=== PATIENT | female | born 1985 | race Caucasian/White ===

== ENCOUNTER 2017-04-09 17:59 | Emergency (ER) | payer OTHER ==
[~2017-04-09] VITALS: Ht 170.2 cm; Wt 117.9 kg
--- NOTE | ~2017-04-09 | EKG ---
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
[~2017-04-09 17:59] MED LIST: BEET ROOT PO; CALCIUM 500 +1 EAC5 PO; FISH OIL 1,001000 M2 PO; MULTIVITAMINS1 EAC7 PO; PROBIOTIC1 EAC1 PO; TORADOL 10 MG T10 MG PO; TRAZODONE HCL100 MG PO; VITAMIN B122500 MCG PO; ZOFRAN ODT4 MG DISSOLVE
[2017-04-09 18:36] LABS: HEMATOCRIT 37.4 % (37.0-47.0); HEMOGLOBIN 12.8 gm/dL (12.0-15.0); MCH 29.7 pg (26.0-34.0); MCHC 34.1 g/dL (28.0-37.0); RBC 4.3 mil/uL (4.20-5.00); RDW 13.3 % (10.5-14.5); WBC 8.1 thou/uL (4.0-11.0)
[2017-04-09 18:43] LABS: ANION GAP 9 mmol/L (7-16); BUN 15 mg/dL (7-18); CALCIUM 9.2 mg/dL (8.5-10.1); CHLORIDE 106 mmol/L (98-107); CO2 26 mmol/L (21-32); CREATININE 0.7 mg/dL (0.6-1.0); GLUCOSE 92 mg/dL (74-106); POTASSIUM 4.1 mmol/L (3.5-5.1); SODIUM 141 mmol/L (136-145)
[2017-04-09 18:52] LABS: ALBUMIN 3.7 g/dL (3.4-5.0); SGOT 34 U/L (15-37); SGPT 25 U/L (30-65); TOTAL BILIRUBIN 0.6 mg/dL (<0.1-1.0); TOTAL PROTEIN 7.1 g/dL (6.4-8.2); TROPONIN-I < 0.04 ng/mL (<0.06)
[2017-04-09 19:35] VITALS: BP 133/72
== END 2017-04-09 19:36 | disposition home or self-care (01) ==
LOC: ER 17:59
PROVIDERS: Physician Assistant
DX: R07.9 Chest pain, unspecified (principal); F32.9 Major depressive disorder, single episode, unspecified; I10 Essential (primary) hypertension

== ENCOUNTER → 2018-03-12 | Outpatient (CLI) | payer OTHER | LOC: ULTRA 10:17 | DX: O34.81 Maternal care for other abnormalities of pelvic organs, first trimester (principal); N83.11 Corpus luteum cyst of right ovary; Z3A.01 Less than 8 weeks gestation of pregnancy ==

== ENCOUNTER 2018-03-23 00:11 | Emergency (ER) | payer OTHER ==
[~2018-03-23] VITALS: Ht 170.2 cm; Wt 88.5 kg
[2018-03-23] MEDS ORDERED: ZOFRAN ODT4 MG PO (00:33)
[2018-03-23 00:34] LABS: ABSOLUTE NEUTROPHILS 8.6 thou/uL (1.4-8.2); BASOPHILS 0.2 % (0.0-2.0); EOSINOPHILS 0.7 % (0.0-3.0); HEMATOCRIT 36.6 % (37.0-47.0); HEMOGLOBIN 12.6 gm/dL (12.0-15.0); LYMPHOCYTES 7.7 % (24.0-44.0); MCH 29.5 pg (26.0-34.0); MCHC 34.3 g/dL (28.0-37.0); MCV 86.1 fL (80.0-100.0); MONOCYTES 1.3 % (1.0-8.0); PLATELET COUNT 205 thou/uL (150-400); POLYS 90.1 % (36.0-66.0); RBC 4.26 mil/uL (4.20-5.00); RDW 13.3 % (10.5-14.5); WBC 9.5 thou/uL (4.0-11.0)
[2018-03-23 00:42] LABS: CALCIUM 8.9 mg/dL (8.5-10.1); CREATININE 0.7 mg/dL (0.6-1.0); POTASSIUM 3.6 mmol/L (3.5-5.1)
[2018-03-23 00:48] LABS: URINE CLARITY CLEAR; URINE COLOR YELLOW
[2018-03-23 00:48] LABS: ALBUMIN 3.3 g/dL (3.4-5.0); TOTAL BILIRUBIN 0.5 mg/dL (<0.1-1.0); TOTAL PROTEIN 6.8 g/dL (6.4-8.2)
[2018-03-23 00:50] LABS: URINE BILIRUBIN NEGATIVE (Negative); URINE BLOOD 1+ (Negative); URINE GLUCOSE-RANDOM* NEGATIVE (Negative); URINE KETONES NEGATIVE (Negative); URINE LEUKOCYTES 2+ (Negative); URINE NITRITE POSITIVE (Negative); URINE PROTEIN (DIPSTICK) NEGATIVE (Negative); URINE SPECIFIC GRAVITY 1.015 (1.005-1.035); URINE UROBILINOGEN 0.2 E.U./dl (0.2-1.0)
[2018-03-23 00:58] LABS: SQUAMOUS 0-3 Few /LPF (0-3)
[2018-03-23 00:59] LABS: BACTERIA 1-9 Few /HPF (None Seen); CASTS None Seen /LPF (None Seen); CRYSTALS None Seen /LPF (None Seen); URINE RBC 0-2 Rare /HPF (0-2)
[2018-03-23 03:43] VITALS: BP 130/63
[2018-03-23] MEDS ORDERED: NORCO 5-325 TA1 EACH PO (03:43)
[2018-03-23] MEDS ORDERED: AUGMENTIN 500-1 EACH PO (03:43)
== END 2018-03-23 03:52 | disposition home or self-care (01) ==
LOC: ER 00:11
PROVIDERS: Emergency Medicine
DX: O99.611 Diseases of the digestive system complicating pregnancy, first trimester (principal); O23.41 Unspecified infection of urinary tract in pregnancy, first trimester; K80.20 Calculus of gallbladder without cholecystitis without obstruction; F32.9 Major depressive disorder, single episode, unspecified; Z98.890 Other specified postprocedural states; Z3A.01 Less than 8 weeks gestation of pregnancy

== ENCOUNTER 2018-05-01 08:25 | Emergency (ER) | payer OTHER ==
[~2018-05-01] VITALS: Ht 170.2 cm; Wt 97.5 kg
[~2018-05-01 08:25] MED LIST changes: +AUGMENTIN 500-1 EACH PO; +NORCO 5-325 TA1 EACH PO; +ZOFRAN ODT4 MG PO
[2018-05-01] MEDS ORDERED: PRENATAL 19 TA1 EACH PO (08:48)
--- NOTE | 2018-05-01 08:56 | EKG ---
[address] [place] [address] [address] [employer] [place] [address] ELECTROCARDIOGRAM REPORT Name: TOM PONCE Room #: [facility]#: [id number] Admission: Attend Phys: Discharge: Date of : 85 Report #: [id number] THIS REPORT FOR: //name// 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1985 Requested By: Doug Lewis Order Number: [id number] MD: Chucky Grady Measurements Intervals [place] Rate: 74 P: 15 CA: 151 QRS: -8 QRSD: 102 T: -1 QT: 373 QTc: 414 Interpretive Statements Sinus rhythm Inferior infarct, old Baseline wander in lead(s) III Compared to ECG 04/09/2017 18:32:50 No significant change was found Electronically Signed On 05-01-2018 8:56:01 BLENDING MACHINE FEEDER by Chucky Grady [email or web address] <ELECTRONICALLY SIGNED> By: Chucky Grady MD, [facility] 05/01/18 [id number] Chucky Grady MD, FACC /EPI
[2018-05-01 09:14] LABS: ABSOLUTE NEUTROPHILS 6.1 thou/uL (1.4-8.2); BASOPHILS 0.4 % (0.0-2.0); EOSINOPHILS 1.9 % (0.0-3.0); HEMATOCRIT 35.8 % (37.0-47.0); HEMOGLOBIN 12.7 gm/dL (12.0-15.0); LYMPHOCYTES 18.8 % (24.0-44.0); MCH 30.1 pg (26.0-34.0); MCHC 35.4 g/dL (28.0-37.0); MCV 85.1 fL (80.0-100.0); MONOCYTES 5.9 % (1.0-8.0); PLATELET COUNT 224 thou/uL (150-400); RBC 4.21 mil/uL (4.20-5.00); RDW 14.5 % (10.5-14.5); WBC 8.3 thou/uL (4.0-11.0)
[2018-05-01 09:17] LABS: CALCIUM 9.1 mg/dL (8.5-10.1); CREATININE 0.6 mg/dL (0.6-1.0); POTASSIUM 3.5 mmol/L (3.5-5.1)
[2018-05-01 09:23] LABS: ALBUMIN 3.2 g/dL (3.4-5.0); TOTAL BILIRUBIN 0.3 mg/dL (<0.1-1.0); TOTAL PROTEIN 6.8 g/dL (6.4-8.2)
[2018-05-01 10:12] LABS: URINE BILIRUBIN NEGATIVE (Negative); URINE BLOOD NEGATIVE (Negative); URINE CLARITY CLEAR; URINE COLOR YELLOW; URINE GLUCOSE-RANDOM* NEGATIVE (Negative); URINE KETONES NEGATIVE (Negative); URINE LEUKOCYTES-REFLEX NEGATIVE (Negative); URINE NITRITE-REFLEX NEGATIVE (Negative); URINE PROTEIN (DIPSTICK) NEGATIVE (Negative); URINE UROBILINOGEN 0.2 E.U./dl (0.2-1.0)
[2018-05-01 10:13] VITALS: BP 119/58
== END 2018-05-01 10:19 | disposition home or self-care (01) ==
LOC: ER 08:25
PROVIDERS: Emergency Medicine
DX: O26.891 Other specified pregnancy related conditions, first trimester (principal); R55 Syncope and collapse; O99.341 Other mental disorders complicating pregnancy, first trimester; O16.1 Unspecified maternal hypertension, first trimester; O24.419 Gestational diabetes mellitus in pregnancy, unspecified control; Z3A.13 13 weeks gestation of pregnancy